=== PATIENT | female | born 1990 | race Caucasian/White ===

== ENCOUNTER → 2018-01-18 | Outpatient (CLI) | payer MEDICAID | LOC: FIMAGING 12:44 | PROVIDERS: ATTEND Obstetrics & Gynecology | DX: O09.291 Supervision of pregnancy with other poor reproductive or obstetric history, first trimester (principal); O99.211 Obesity complicating pregnancy, first trimester; Z3A.12 12 weeks gestation of pregnancy ==

== ENCOUNTER → 2018-03-23 | Outpatient (CLI) | payer MEDICAID | LOC: FIMAGING 10:24 | PROVIDERS: ATTEND Obstetrics & Gynecology | DX: O99.212 Obesity complicating pregnancy, second trimester (principal); Z68.41 Body mass index [BMI] 40.0-44.9, adult; Z3A.21 21 weeks gestation of pregnancy ==

== ENCOUNTER → 2018-04-29 | Outpatient (CLI) | payer MEDICAID | LOC: FIMAGING 10:20 | PROVIDERS: ATTEND Obstetrics & Gynecology | DX: O99.212 Obesity complicating pregnancy, second trimester (principal); Z68.41 Body mass index [BMI] 40.0-44.9, adult; Z3A.27 27 weeks gestation of pregnancy ==

== ENCOUNTER → 2018-06-22 | Outpatient (CLI) | payer MEDICAID | LOC: FIMAGING 14:00 | PROVIDERS: ATTEND Obstetrics & Gynecology | DX: Z34.83 Encounter for supervision of other normal pregnancy, third trimester (principal); Z3A.34 34 weeks gestation of pregnancy ==